=== PATIENT | female | born 1985 | race Two or more races ===

== ENCOUNTER 2024-12-30 22:58 | Emergency (ER) | payer BC, OTHER ==
[~2024-12-30] VITALS: Ht 157.5 cm; Wt 85.7 kg
[2024-12-31] MEDS ORDERED: MORPHINE SULFATE INJ 2 MG/ML DISP.SYRIN ONE (03:19)
[2024-12-31] MEDS ORDERED: KETO10TA2 PO (03:19)
[2024-12-31] MEDS ORDERED: ONDANSETRON 4 MG TAB.RAPDIS ONE (03:19)
[2024-12-31] MEDS: ONDANSETRON 4 MG TAB.RAPDIS PO ONE (03:21)
[2024-12-31] MEDS: MORPHINE SULFATE INJ 2 MG/ML DISP.SYRIN IM ONE (03:21)
[2024-12-31 03:37] VITALS: BP 123/82; TEMP 98.2; O2SAT 99
== END 2024-12-31 03:53 | disposition home or self-care (01) ==
LOC: ER 23:01
DX: S92.351A Displaced fracture of fifth metatarsal bone, right foot, initial encounter for closed fracture (principal); W01.0XXA Fall on same level from slipping, tripping and stumbling without subsequent striking against object, initial encounter; Y93.89 Activity, other specified; Y92.89 Other specified places as the place of occurrence of the external cause; Y99.8 Other external cause status
CPT/HCPCS: 29515; 73610; 73630; 99284; Q0162; J2270